=== PATIENT | female | born 1955 | race Hispanic/Latino ===

== ENCOUNTER 2023-06-26 07:37 | Day surgery (SDC) | payer MEDICARE ==
[2023-06-20 13:18] VITALS: BP 146/80; PULSE 55; RESP 16
[2023-06-26] VITALS (10 sets, daily range): BP systolic 119–144; BP diastolic 68–81; PULSE 59–76; RESP 13–16
[~2023-06-26] VITALS: Ht 152.4 cm; Wt 72.8 kg
[~2023-06-26 07:37] MED LIST: LOSA-418 PO; MILK THISTLE PO
[2023-06-26] MEDS ORDERED: LIDOCAINE HCL 1% 20 ML VIAL ONE (09:56)
[2023-06-26] MEDS ORDERED: PROPOFOL 10 MG/ML 20ML VIAL IV ONE ×2 (09:56→10:25)
== END 2023-06-26 11:50 | disposition home or self-care (01) ==
LOC: ENDO 07:37 → DAH 07:37 → ENDO 11:50
PROVIDERS: ATTEND Internal Medicine Gastroenterology
DX: R94.5 Abnormal results of liver function studies (principal); K76.9 Liver disease, unspecified; I10 Essential (primary) hypertension; K57.30 Diverticulosis of large intestine without perforation or abscess without bleeding; K74.02 Hepatic fibrosis, advanced fibrosis; R93.422 Abnormal radiologic findings on diagnostic imaging of left kidney; K64.9 Unspecified hemorrhoids; Z82.49 Family history of ischemic heart disease and other diseases of the circulatory system; Z83.3 Family history of diabetes mellitus; Z79.899 Other long term (current) drug therapy; Z98.891 History of uterine scar from previous surgery; Z98.890 Other specified postprocedural states
CPT/HCPCS: 43238; 88307; J2704 ×2; A4620; A4215 ×3; A4223; A7002; A4222; A4221; A4663; A4216; J7030; A4606; J3490